=== PATIENT | female | born 1955 | race African-American/Black ===

== ENCOUNTER 2023-02-03 08:56 | Inpatient (IN) | payer MEDICARE, OTHER ==
[2023-02-03] VITALS (14 sets, daily range): BP systolic 122–201; BP diastolic 63–136; PULSE 70–101; RESP 13–27; TEMP 97.8–98.2
[~2023-02-03] VITALS: Ht 162.6 cm; Wt 69.9 kg
[2023-02-03 09:59] LABS: BASOPHILS % 0.4 % (0.0-2.0); EOSINOPHILS % 0.3 % (0.0-5.0); HEMATOCRIT. 33.4 % (36.0-48.0); HEMOGLOBIN. 10.8 g/dL (12.0-16.0); LYMPHOCYTES % 18.9 % (20.0-50.0); MEAN CORPUSCULAR HEMOGLOBIN 24.5 pg (28.0-32.0); MEAN CORPUSCULAR VOLUME 75.9 fL (81.0-99.0); MEAN PLATELET VOLUME 8.1 fl (7.4-10.4); MONOCYTES % 9.6 % (2.0-8.0); NEUTROPHILS % 70.8 % (40.0-76.0); PLATELET 250 x1000/uL (130-400); RED CELL DISTRIBUTION WIDTH 14.5 % (11.6-14.6)
[2023-02-03 10:03] LABS: CHLORIDE 112 mEq/L (98-107)
[2023-02-03 10:05] LABS: PROTHROMBIN TIME 10.9 sec (9.6-11.0)
[2023-02-03] MEDS ORDERED: NICARDIPINE 40MG/200ML PREMIX 200 ML IV PRN (15:00)
[2023-02-03] MEDS ORDERED: DEXTROSE 50% WATER 50ML SYRINGE IV PRN (22:00)
[2023-02-03] MEDS ORDERED: NICARDIPINE 100 MG in SODIUM CHLORIDE 0.9% 60 ML IV PRN (23:00)
[2023-02-03] MEDS: LEVETIRACETAM 500MG PREMIX 100 ML IV SCH (23:13)
[2023-02-03] MEDS: DEXT 5%/LACTATED RINGERS 1,000 ML IV SCH (23:13)
[2023-02-04] VITALS (58 sets, daily range): BP systolic 105–160; BP diastolic 53–119; PULSE 68–95; RESP 9–28; TEMP 97.6–98.2
[2023-02-04 06:17] LABS: BASOPHILS % 0.4 % (0.0-2.0); EOSINOPHILS % 1.1 % (0.0-5.0); HEMATOCRIT. 33.4 % (36.0-48.0); HEMOGLOBIN. 10.8 g/dL (12.0-16.0); LYMPHOCYTES % 31.6 % (20.0-50.0); MEAN CORPUSCULAR HEMOGLOBIN 24.2 pg (28.0-32.0); MEAN CORPUSCULAR VOLUME 74.9 fL (81.0-99.0); MEAN PLATELET VOLUME 8.4 fl (7.4-10.4); MONOCYTES % 10.8 % (2.0-8.0); NEUTROPHILS % 56.1 % (40.0-76.0); PLATELET 220 x1000/uL (130-400); RED BLOOD CELL COUNT 4.46 mill/uL (4.2-5.4); RED CELL DISTRIBUTION WIDTH 14.3 % (11.6-14.6)
[2023-02-04] MEDS ORDERED: BLOOD SUGAR DIAGNOSTIC STRIP TEST SCH (06:30)
[2023-02-04] MEDS ORDERED: INSULIN LISPRO 100 UNITS/ML SUBCUT SCH (07:00)
[2023-02-04] MEDS ORDERED: PANTOPRAZOLE SODIUM 40 MG/VIAL IV SCH (09:00)
[2023-02-04] MEDS: LEVETIRACETAM 500MG PREMIX 100 ML IV SCH ×2 (09:43→21:46)
[2023-02-04] MEDS ORDERED: NICARDIPINE 100 MG in SODIUM CHLORIDE 0.9% 60 ML IV PRN (13:30)
[2023-02-04 15:32] LABS: CLARITY URINE CLOUDY (CLEAR); COLOR URINE YELLOW (YELLOW); KETONES URINE NEGATIVE (NEGATIVE); LEUKOCYTE ESTERASE URINE 1+ (NEGATIVE); NITRITE URINE NEGATIVE (NEGATIVE); OCCULT BLOOD URINE TRACE (NEGATIVE); PH URINE 5.5 (4.5-8.0); PROTEIN URINE 3+ (NEGATIVE); SPECIFIC GRAVITY URINE 1.017 (1.005-1.030); UROBILINOGEN URINE 0.2 E.U./dL (0.2-1.0)
[2023-02-04] MEDS: DEXT 5%/LACTATED RINGERS 1,000 ML IV SCH ×2 (21:38→21:56)
[2023-02-05] VITALS (9 sets, daily range): BP systolic 144–173; BP diastolic 73–92; PULSE 80–89; RESP 16–21; TEMP 96.8–98.7
[2023-02-05 06:53] LABS: BASOPHILS % 0.3 % (0.0-2.0); EOSINOPHILS % 1.7 % (0.0-5.0); HEMATOCRIT. 32.4 % (36.0-48.0); HEMOGLOBIN. 10.5 g/dL (12.0-16.0); LYMPHOCYTES % 22.8 % (20.0-50.0); MEAN CORPUSCULAR HEMOGLOBIN 24.6 pg (28.0-32.0); MEAN CORPUSCULAR VOLUME 75.5 fL (81.0-99.0); MEAN PLATELET VOLUME 8.4 fl (7.4-10.4); MONOCYTES % 12.9 % (2.0-8.0); NEUTROPHILS % 62.3 % (40.0-76.0); PLATELET 213 x1000/uL (130-400); RED BLOOD CELL COUNT 4.29 mill/uL (4.2-5.4)
[2023-02-05] MEDS: LEVETIRACETAM 500MG PREMIX 100 ML IV SCH ×2 (09:00→10:01)
[2023-02-05] MEDS ORDERED: PANTOPRAZOLE 40MG DR TABLET PO SCH (11:00)
[2023-02-05] MEDS: AMLODIPINE 5MG TABLET PO SCH (11:08)
[2023-02-05] MEDS ORDERED: LEVE500T98 MT (12:42)
[2023-02-05] MEDS ORDERED: INSU100I49 (12:42)
[2023-02-05] MEDS ORDERED: METO75TA PO (12:42)
[2023-02-05] MEDS ORDERED: AMIO100T4 MT (12:42)
[2023-02-05] MEDS ORDERED: DILT90TA2 PO (12:42)
[2023-02-05] MEDS ORDERED: METH-371 PO (12:42)
[2023-02-05] MEDS ORDERED: LORA-250 PO (12:42)
[2023-02-05] MEDS ORDERED: HYDR-4001 MT (12:42)
[2023-02-05] MEDS ORDERED: INSU100I28 SQ (12:42)
[2023-02-05] MEDS ORDERED: CLON-457 PO (12:42)
[2023-02-06 04:00] VITALS: BP 147/82; PULSE 76; RESP 16; TEMP 97.7
[2023-02-06 08:00] VITALS: BP 130/61; PULSE 75; RESP 18; TEMP 96.3
[2023-02-06] MEDS: AMLODIPINE 5MG TABLET PO SCH (08:42)
[2023-02-06] MEDS ORDERED: FAMOTIDINE 20MG TABLET PO SCH (09:00)
[2023-02-06 12:00] VITALS: BP 143/80; PULSE 81; RESP 18; TEMP 97.1
[2023-02-06 16:59] VITALS: BP 145/75; PULSE 85; TEMP 98.1; O2SAT 100
== END 2023-02-06 18:06 | disposition home health service (06) | DRG 45 ==
LOC: ER 08:56 → EDBEDREQTM 16:20 → EDBEDREQ 16:20 → MICUSO 21:03 → MICUNO 02-04 13:15 → 8WST 02-04 16:32
PROVIDERS: ADMIT Internal Medicine; ATTEND Internal Medicine
DX: I63.89 Other cerebral infarction (principal); N17.0 Acute kidney failure with tubular necrosis; I62.9 Nontraumatic intracranial hemorrhage, unspecified; R47.01 Aphasia; D64.9 Anemia, unspecified; E11.9 Type 2 diabetes mellitus without complications; I48.91 Unspecified atrial fibrillation; G93.89 Other specified disorders of brain; I16.0 Hypertensive urgency; R94.31 Abnormal electrocardiogram [ECG] [EKG]; I10 Essential (primary) hypertension; Z60.2 Problems related to living alone; Z79.899 Other long term (current) drug therapy
CPT/HCPCS: 36415; 70551; 71045; 80048; 80053; 80061; 81003; 82962; 83036; 84484; 85025; 93005; 93306; 93970; 97162; 97166; 97530; 99291; A6261; C9113; J1953; J3490; J7050